=== PATIENT | female | born 1965 | race Caucasian/White ===

== ENCOUNTER 2017-06-15 09:59 | Day surgery (SDC) | payer BC ==
[~2017-06-15] VITALS: Ht 162.6 cm; Wt 118.8 kg
--- NOTE | ~2017-06-15 | EGD ---
EGD REPORT [facility] [address] [address] NAME: LUNA ORTEGA : [birth year] STATUS : REG [facility] [place] PAT#: [id number] AGE: 52 ADM/REG DATE : 06/15/17 MR#: [id number] REPORT SERV DATE: 06/15/17 DICTATED BY: SANDRA PERRY III DATE: 06/15/17 REPORT STATUS : Draft TRANSCRIBED BY: [facility] DATE: 06/15/17 Endoscopy Center Patient Name: Luna Ortega Date of : 1965 Attending MD: SANDRA PERRY III, MD Procedure Date No Time: 06/15/2017 Procedure: Upper GI endoscopy Indications: Iron deficiency anemia Referring MD: Tremaine ARBOLEDA Medicines: Propofol per Anesthesia Complications: No immediate complications. Procedure: After obtaining informed consent, the endoscope was passed under direct vision. Throughout the procedure, the patient's blood pressure, pulse, and oxygen saturations were monitored continuously. The GIF H190 [id number] was introduced through the mouth, and advanced to the third part of duodenum. The upper GI endoscopy was accomplished with ease. The patient tolerated the procedure well. Findings: The examined esophagus was normal. The examined duodenum was normal. Biopsies were taken with a cold forceps for evaluation of celiac disease. Diffuse mildly erythematous mucosa without bleeding was found in the gastric antrum. Biopsies were taken with a cold forceps for histology. Multiple 6 to 10 mm sessile polyps with no bleeding and no stigmata of recent bleeding were found in the gastric fundus and in the gastric body. Impression: - Normal esophagus. - Normal examined duodenum. Biopsied. - Erythematous mucosa in the antrum. Biopsied. - Multiple gastric polyps. Recommendation: - Patient has a contact number available for emergencies. The signs and symptoms of potential delayed complications were discussed with the patient. Return to normal activities tomorrow. Written discharge instructions were provided to the patient. - Discharge patient to home. - Return to previous diet. - Follow an antireflux regimen. - Continue present medications. - Await pathology results. EGD REPORT [address] [address] NAME: LUNA ORTEGA : [birth year] STATUS : REG [facility]#: [id number] AGE: 52 ADM/REG DATE : 06/15/17 MR#: [id number] REPORT SERV DATE: 06/15/17 DICTATED BY: SANDRA PERRY III DATE: 06/15/17 REPORT STATUS : Draft TRANSCRIBED BY: [employer] DATE: 06/15/17 Procedure Code(s): --- Professional --- 77798, Esophagogastroduodenoscopy, flexible, transoral; with biopsy, single or multiple Diagnosis Code(s): --- Professional --- K31.9, Disease of stomach and duodenum, unspecified K31.7, Polyp of stomach and duodenum D50.9, Iron deficiency anemia, unspecified CPT copyright 2013 [employer]. All rights reserved. The codes documented in this report are preliminary and upon cage fighter review may be revised to meet current compliance requirements. SANDRA PERRY III, MD 06/15/2017 12:44 PM This report has been signed electronically. Number of Addenda: 0 Note Initiated On: 06/15/2017 12:33 PM Scope Withdrawal Time 0 hours 0 minutes 0 seconds
--- NOTE | ~2017-06-15 | EGD ---
EGD REPORT [facility] [address] [address] NAME: LUNA OREILLY : 61 STATUS : REG [facility] PAT#: [id number] AGE: 52 ADM/REG DATE : 06/15/17 MR#: [id number] REPORT SERV DATE: 06/15/17 DICTATED BY: SANDRA PERRY III DATE: 06/15/17 REPORT STATUS : Draft [facility]ANSCRIBED BY: [facility] DATE: 06/15/17 Endoscopy Center Patient Name: Luna Oreilly Date of : 1965 Attending MD: SANDRA PERRY III, MD Procedure Date No Time: 06/15/2017 Procedure: Colonoscopy Indications: Iron deficiency anemia Referring MD: Tremaine ARBOLEDA Medicines: Propofol per Anesthesia Complications: No immediate complications. Procedure: After I obtained informed consent, the scope was passed under direct vision. Throughout the procedure, the patient's blood pressure, pulse, and oxygen saturations were monitored continuously. The PCF [id number] was introduced through the anus and advanced to the terminal ileum. The colonoscopy was performed with ease. The patient tolerated the procedure well. The quality of the bowel preparation was good. Findings: Multiple small-mouthed diverticula were found in the sigmoid colon. The terminal ileum appeared normal. Two sessile polyps were found in the descending colon. The polyps were 4 to 5 mm in size. These polyps were removed with a cold biopsy forceps. Resection and retrieval were complete. Impression: - Diverticulosis in the sigmoid colon. - The examined portion of the ileum was normal. - Two 4 to 5 mm polyps in the descending colon. Resected and retrieved. Recommendation: - Patient has a contact number available for emergencies. The signs and symptoms of potential delayed complications were discussed with the patient. Return to normal activities tomorrow. Written discharge instructions were provided to the patient. - Discharge patient to home. - High fiber diet indefinitely. - Continue present medications. - Await pathology results. - Repeat colonoscopy after studies are complete for surveillance based on pathology results. Procedure Code(s): --- Professional --- EGD REPORT [facility] [address] [address] NAME: LUNA OREILLY : [birth year] STATUS : REG [facility] PAT#: [id number] AGE: 52 ADM/REG DATE : 06/15/17 MR#: [id number] REPORT SERV DATE: 06/15/17 DICTATED BY: SANDRA PERRY III DATE: 06/15/17 REPORT STATUS : Draft TRANSCRIBED BY: [employer] DATE: 06/15/17 69057, Colonoscopy, flexible, proximal to splenic flexure; with biopsy, single or multiple Diagnosis Code(s): --- Professional --- K57.30, Diverticulosis of large intestine without perforation or abscess without bleeding D12.4, Benign neoplasm of descending colon D50.9, Iron deficiency anemia, unspecified CPT copyright 2013 [employer]. All rights reserved. The codes documented in this report are preliminary and upon language asst review may be revised to meet current compliance requirements. SANDRA PERRY III, MD 06/15/2017 1:01 PM This report has been signed electronically. Number of Addenda: 0 Note Initiated On: 06/15/2017 12:31 PM Scope Withdrawal Time 0 hours 8 minutes 55 seconds [address] [place] [address]
[~2017-06-15 09:59] MED LIST: ALLEGRA180 PO; AMB5 PO; ATV.5 PO; CYANO1000T PO; ENDOMETRIN100 MG V; ESTRACE1 MG PO; FERROUS SULF325 M1 PO; FISH-EPA1000 MG PO; FLUTICASONE T; GEODON60 MG PO; GINGER PO; GLUCPH PO; HYDROCHLOROT25 MG PO; LATUDA60 MG PO; MURO5OOIN OPH; NIZORALCRM TOP; PRILO PO; PROBIOTIC PO; SPIR100 PO; SPIRO50 PO; SYSTANE ULTR OPH; TRIVORA-28 PO; VITAMIN D1000 UNI1 PO; VITC500 PO; XYZAL5 MG PO; [UNRECOGNIZED DRUG - MIXTURE] PO; [UNRECOGNIZED DRUG - OTHER] PO
== END 2017-06-15 23:59 | disposition home or self-care (01) ==
LOC: DMU 09:59
PROVIDERS: Internal Medicine Gastroenterology
PROC: 0DBM8ZZ Excision of Descending Colon, Via Natural or Artificial Opening Endoscopic (ICD-10-PCS; 2017-06-15)
PROC: 0DB98ZX Excision of Duodenum, Via Natural or Artificial Opening Endoscopic, Diagnostic (ICD-10-PCS; principal; 2017-06-15 11:30)
PROC: 0DB68ZX Excision of Stomach, Via Natural or Artificial Opening Endoscopic, Diagnostic (ICD-10-PCS; 2017-06-15 11:30)
DX: D12.4 Benign neoplasm of descending colon (principal); K63.5 Polyp of colon; D50.9 Iron deficiency anemia, unspecified; K57.30 Diverticulosis of large intestine without perforation or abscess without bleeding; K21.9 Gastro-esophageal reflux disease without esophagitis; E11.9 Type 2 diabetes mellitus without complications; F41.9 Anxiety disorder, unspecified; M79.7 Fibromyalgia; L40.9 Psoriasis, unspecified; F31.9 Bipolar disorder, unspecified; F41.0 Panic disorder [episodic paroxysmal anxiety]; G47.33 Obstructive sleep apnea (adult) (pediatric); Z87.891 Personal history of nicotine dependence; Z99.89 Dependence on other enabling machines and devices; Z88.2 Allergy status to sulfonamides; Z88.6 Allergy status to analgesic agent; Z91.018 Allergy to other foods; Z91.02 Food additives allergy status; Z90.49 Acquired absence of other specified parts of digestive tract; Z79.51 Long term (current) use of inhaled steroids; Z79.84 Long term (current) use of oral hypoglycemic drugs; Z79.818 Long term (current) use of other agents affecting estrogen receptors and estrogen levels; Z79.899 Other long term (current) drug therapy; Z98.890 Other specified postprocedural states
CPT/HCPCS: 82962; 88305